=== PATIENT | female | born 1935 | race Caucasian/White ===

== ENCOUNTER 2019-06-25 06:11 | Day surgery (SDC) | payer MEDICARE, OTHER ==
[2019-06-24 11:50] LABS: International Normalized Ratio 1.43; Prothrombin Time Results 14.7 Sec (9.7-11.5)
[2019-06-24 12:01] LABS: Anion Gap 3 mmol/L (6-16); Blood Urea Nitrogen 10 mg/dL (8-24); Bun/Creatinine Ratio 17.2 (12.0-20.0); CO2, Blood 29 mmol/L (21-32); Calcium, Blood 8.6 mg/dL (8.5-10.1); Chloride, Blood 108 mmol/L (98-108); Creatinine, Blood 0.58 mg/dL (0.40-1.00); Glomerular Filtration Rate >60 (60-); Glucose, Blood 132 mg/dL (70-99); Potassium, Blood 3.7 mmol/L (3.5-5.5); Sodium, Blood 140 mmol/L (136-145)
[~2019-06-25] VITALS: Ht 157 cm; Wt 80.0 kg
[~2019-06-25 06:11] MED LIST: ECHINACEA350 MG PO; FERSU300 PO; LETR2.5 PO; LISI5 PO; LOVENOX; Milk Thistle175 M1 PO; PHENY100ER PO; VITAMIN B122500 MCG PO; WARF3 PO; WARF5 PO; [UNRECOGNIZED DRUG - OTHER] PO; [UNRECOGNIZED DRUG - REMARK] PO
--- NOTE | 2019-06-25 07:40 | NUR ---
"DAY SURGERY RN | TO OR VSS. A/O. Both doctors have seen patient. Denies further questions with family at bedside. Rx given to family to fill while patient in surgery. Patient denies need to void prior to surgery. Taken to OR."
--- NOTE | 2019-06-25 07:42 | NUR ---
"DAY SURGERY RN | Report to German GAITAN."
--- NOTE | 2019-06-25 13:05 | NUR ---
Patient up to Ambulate independently. Gait steady. STANDBY ASSIST WITH STANDING AND TRANSFER. Discharge instructions reviewed with patient. Patient verbalizes understanding. Copy given to patient to take home. Patient States Post-Procedure ride home has been arranged. Discharged via wheelchair to private car for ride home. IS, ADDITIONAL BINDER, 4X4 GAUZE, PADS, SPEC CUP, DAYANNA RECORD SENT WITH PT/DAUGHTER
--- NOTE | 2019-06-25 14:15 | NUR ---
06/25/19 1415 Mary Ugalde CHART AUDITS, VERIFICATIONS.
[2019-06-26 09:23] LABS: BASOPHILS ABSOLUTE AUTO 0.06 K/mm3 (0.00-0.23); BASOPHILS PERCENT AUTO 1 % (0-2); EOSINOPHILS ABSOLUTE AUTO 0.23 K/mm3 (0.00-0.68); EOSINOPHILS PERCENT AUTO 3 % (0-6); Hematocrit 44.7 % (33.0-51.0); Hemoglobin 14.8 g/dL (11.5-16.0); IMMATURE GRAN ABSOLUTE AUTO 0.02 K/mm3 (0.00-0.10); IMMATURE GRAN PERCENT AUTO 0 % (0-1); LYMPHOCYTES ABSOLUTE AUTO 1.25 K/mm3 (0.84-5.20); LYMPHOCYTES PERCENT AUTO 19 % (21-46); MONOCYTES ABSOLUTE AUTO 0.82 K/mm3 (0.16-1.47); MONOCYTES PERCENT AUTO 12 % (4-13); Mean Corpuscular HGB 32.7 pg (26.0-34.0); Mean Corpuscular HGB Conc 33.1 g/dL (31.5-36.5); Mean Corpuscular Volume 99 fL (80-100); Mean Platelet Volume 11.9 fL (9.1-12.4); NEUTROPHILS ABSOLUTE AUTO 4.37 K/mm3 (1.96-9.15); NEUTROPHILS PERCENT AUTO 65 % (41-73); Platelet Count 161 K/mm3 (150-400); RDW Coefficient Variation 12.4 % (11.7-14.2); RDW Standard Deviation 44.5 fL (35.1-46.3); Red Blood Cell Count 4.53 M/mm3 (3.80-5.20); White Blood Cell Count 6.75 K/mm3 (4.00-11.30)
== END 2019-06-25 23:18 | disposition home or self-care (01) ==
LOC: ORSCMMR 06:11 → ORD 07:30 → ORSCMMR 23:18
PROVIDERS: Surgery
PROC: 0HTU0ZZ Resection of Left Breast, Open Approach (ICD-10-PCS; principal; 2019-06-25 07:30)
DX: C50.812 Malignant neoplasm of overlapping sites of left female breast (principal); Z17.0 Estrogen receptor positive status [ER+]; C77.3 Secondary and unspecified malignant neoplasm of axilla and upper limb lymph nodes; I48.0 Paroxysmal atrial fibrillation; Z79.01 Long term (current) use of anticoagulants; E66.9 Obesity, unspecified; Z68.32 Body mass index [BMI] 32.0-32.9, adult
CPT/HCPCS: 36415; 80048; 85025; 85610; 85730; 88309; A9270-GY; J0690; J1100; J1885; J2370; J2405; J2704; J3010; J7120

== ENCOUNTER 2019-07-07 18:14 | Emergency (ER) | payer MEDICARE, OTHER ==
[~2019-07-07] VITALS: Ht 160 cm; Wt 77.1 kg
[2019-07-07] MEDS ORDERED: LORCET 5-325 M1 EACH PO (18:41)
[2019-07-07 19:30] LABS: BASOPHILS ABSOLUTE AUTO 0.03 K/mm3 (0.00-0.23); BASOPHILS PERCENT AUTO 0 % (0-2); EOSINOPHILS ABSOLUTE AUTO 0.07 K/mm3 (0.00-0.68); EOSINOPHILS PERCENT AUTO 1 % (0-6); Hematocrit 43.2 % (33.0-51.0); Hemoglobin 14.3 g/dL (11.5-16.0); IMMATURE GRAN ABSOLUTE AUTO 0.05 K/mm3 (0.00-0.10); IMMATURE GRAN PERCENT AUTO 0 % (0-1); LYMPHOCYTES ABSOLUTE AUTO 0.92 K/mm3 (0.84-5.20); LYMPHOCYTES PERCENT AUTO 7 % (21-46); MONOCYTES ABSOLUTE AUTO 1.02 K/mm3 (0.16-1.47); MONOCYTES PERCENT AUTO 8 % (4-13); Mean Corpuscular HGB 33.3 pg (26.0-34.0); Mean Corpuscular HGB Conc 33.1 g/dL (31.5-36.5); Mean Corpuscular Volume 101 fL (80-100); Mean Platelet Volume 10.3 fL (9.1-12.4); NEUTROPHILS ABSOLUTE AUTO 10.63 K/mm3 (1.96-9.15); NEUTROPHILS PERCENT AUTO 84 % (41-73); Platelet Count 213 K/mm3 (150-400); RDW Coefficient Variation 13.4 % (11.7-14.2); RDW Standard Deviation 49.7 fL (35.1-46.3); White Blood Cell Count 12.72 K/mm3 (4.00-11.30)
[2019-07-07 19:52] LABS: Alanine Aminotransfer (ALT/SGP 27 U/L (12-78); Albumin, Blood 2.7 g/dL (3.4-5.0); Albumin/Globulin Ratio 0.6 (0.8-1.8); Alk Phos 99 U/L (50-136); Anion Gap 5 mmol/L (6-16); Aspartate Aminotrans (AST/SGOT 57 U/L (12-37); Bilirubin, Total 0.6 mg/dL (0.1-1.0); Blood Urea Nitrogen 9 mg/dL (8-24); Bun/Creatinine Ratio 14.5 (12.0-20.0); CO2, Blood 24 mmol/L (21-32); Calcium, Blood 8.6 mg/dL (8.5-10.1); Chloride, Blood 107 mmol/L (98-108); Creatinine, Blood 0.62 mg/dL (0.40-1.00); Globulin, Blood 4.4 g/dL (2.2-4.0); Glomerular Filtration Rate >60 (60-); Glucose, Blood 112 mg/dL (70-99); Potassium, Blood 4.3 mmol/L (3.5-5.5); Sodium, Blood 136 mmol/L (136-145); Total Protein, Blood 7.1 g/dL (6.4-8.2)
[2019-07-07 19:53] LABS: BASOPHILS ABSOLUTE AUTO 0.04 K/mm3 (0.00-0.23); BASOPHILS PERCENT AUTO 0 % (0-2); EOSINOPHILS ABSOLUTE AUTO 0.06 K/mm3 (0.00-0.68); EOSINOPHILS PERCENT AUTO 1 % (0-6); Hematocrit 42.3 % (33.0-51.0); Hemoglobin 14.2 g/dL (11.5-16.0); IMMATURE GRAN ABSOLUTE AUTO 0.03 K/mm3 (0.00-0.10); IMMATURE GRAN PERCENT AUTO 0 % (0-1); LYMPHOCYTES ABSOLUTE AUTO 0.84 K/mm3 (0.84-5.20); LYMPHOCYTES PERCENT AUTO 7 % (21-46); MONOCYTES ABSOLUTE AUTO 1.04 K/mm3 (0.16-1.47); MONOCYTES PERCENT AUTO 8 % (4-13); Mean Corpuscular HGB 32.9 pg (26.0-34.0); Mean Corpuscular HGB Conc 33.6 g/dL (31.5-36.5); Mean Platelet Volume 9.8 fL (9.1-12.4); NEUTROPHILS ABSOLUTE AUTO 10.47 K/mm3 (1.96-9.15); NEUTROPHILS PERCENT AUTO 84 % (41-73); Platelet Count 195 K/mm3 (150-400); RDW Coefficient Variation 13.3 % (11.7-14.2); RDW Standard Deviation 47.8 fL (35.1-46.3); Red Blood Cell Count 4.32 M/mm3 (3.80-5.20); White Blood Cell Count 12.48 K/mm3 (4.00-11.30)
[2019-07-07 19:59] LABS: International Normalized Ratio 3.19; Prothrombin Time Results 30.4 Sec (9.7-11.5)
[2019-07-07 20:00] LABS: Mean Corpuscular Volume 98 fL (80-100)
[2019-07-07 20:16] LABS: Alanine Aminotransfer (ALT/SGP 26 U/L (12-78); Albumin, Blood 2.7 g/dL (3.4-5.0); Albumin/Globulin Ratio 0.6 (0.8-1.8); Alk Phos 102 U/L (50-136); Anion Gap 2 mmol/L (6-16); Aspartate Aminotrans (AST/SGOT 44 U/L (12-37); Bilirubin, Total 0.5 mg/dL (0.1-1.0); Blood Urea Nitrogen 8 mg/dL (8-24); Bun/Creatinine Ratio 11.7 (12.0-20.0); CO2, Blood 28 mmol/L (21-32); Calcium, Blood 8.5 mg/dL (8.5-10.1); Chloride, Blood 107 mmol/L (98-108); Creatinine, Blood 0.69 mg/dL (0.40-1.00); Globulin, Blood 4.4 g/dL (2.2-4.0); Glomerular Filtration Rate >60 (60-); Glucose, Blood 109 mg/dL (70-99); Potassium, Blood 3.9 mmol/L (3.5-5.5); Sodium, Blood 137 mmol/L (136-145); Total Protein, Blood 7.1 g/dL (6.4-8.2)
[2019-07-07 20:48] LABS: Source, Urine Catheter
[2019-07-07 21:00] LABS: Bilirubin, Urine Neg (Neg); Blood, Urine 3+ (Neg); Glucose Qualitative, Urine Neg (Neg); Ketones, Urine Neg (Neg); Leukocyte Esterase, Urine 3+ (Neg); Nitrite, Urine Neg (Neg); Protein, Urine Neg (Neg); Specific Gravity, Urine 1.015 (1.003-1.022); Urobilinogen, Urine NORM (Normal); pH, Urine 6.5 (5.0-8.0)
[2019-07-07 21:07] LABS: Appearance, Urine Hazy (Clear); Color, Urine Yellow (P-Yellow)
[2019-07-07 21:09] LABS: Bacteria Few /hpf; Squamous Epithelial Cells Rare /hpf (Few); White Blood Cells, Urine 25-50 /hpf (0-5)
[2019-07-07 21:10] LABS: Transitional Epithelial Cells Few /hpf (0-Rare)
[2019-07-07 21:25] LABS: Influenza A Negative (NEGATIVE); Influenza B Negative (NEGATIVE)
[2019-07-07] MEDS ORDERED: Keflex500 MG PO (21:42)
== END 2019-07-07 23:00 | disposition left against medical advice (07) ==
LOC: ER 18:14
PROVIDERS: Emergency Medicine; Physician Assistant
DX: A41.9 Sepsis, unspecified organism (principal); N39.0 Urinary tract infection, site not specified; I48.91 Unspecified atrial fibrillation; D72.829 Elevated white blood cell count, unspecified; Z90.12 Acquired absence of left breast and nipple; Z85.3 Personal history of malignant neoplasm of breast; Z79.899 Other long term (current) drug therapy; Z79.01 Long term (current) use of anticoagulants
CPT/HCPCS: 71046; 80053; 81001; 83605; 85025; 85610; 85730; 87040; 87086; 87804; 93005; 93010; 96361; 96365; 99284-25; J0696; J7030

== ENCOUNTER → 2019-07-08 | Outpatient (CLI) | payer MEDICARE, OTHER ==
[~2019-07-08] MED LIST changes: +Keflex500 MG PO; +LORCET 5-325 M1 EACH PO
[2019-07-08 15:43] LABS: BASOPHILS ABSOLUTE AUTO 0.05 K/mm3 (0.00-0.23); BASOPHILS PERCENT AUTO 0 % (0-2); EOSINOPHILS ABSOLUTE AUTO 0.05 K/mm3 (0.00-0.68); EOSINOPHILS PERCENT AUTO 0 % (0-6); Hematocrit 39.6 % (33.0-51.0); Hemoglobin 13.3 g/dL (11.5-16.0); IMMATURE GRAN ABSOLUTE AUTO 0.05 K/mm3 (0.00-0.10); IMMATURE GRAN PERCENT AUTO 0 % (0-1); LYMPHOCYTES ABSOLUTE AUTO 1.38 K/mm3 (0.84-5.20); LYMPHOCYTES PERCENT AUTO 9 % (21-46); MONOCYTES ABSOLUTE AUTO 1.74 K/mm3 (0.16-1.47); MONOCYTES PERCENT AUTO 11 % (4-13); Mean Corpuscular HGB 33.4 pg (26.0-34.0); Mean Corpuscular HGB Conc 33.6 g/dL (31.5-36.5); Mean Corpuscular Volume 100 fL (80-100); Mean Platelet Volume 10.5 fL (9.1-12.4); NEUTROPHILS ABSOLUTE AUTO 12.64 K/mm3 (1.96-9.15); NEUTROPHILS PERCENT AUTO 80 % (41-73); Platelet Count 194 K/mm3 (150-400); RDW Coefficient Variation 13.4 % (11.7-14.2); RDW Standard Deviation 49.5 fL (35.1-46.3); Red Blood Cell Count 3.98 M/mm3 (3.80-5.20); White Blood Cell Count 15.91 K/mm3 (4.00-11.30)
[2019-07-08 16:29] LABS: Anion Gap 8 mmol/L (6-16); Blood Urea Nitrogen 9 mg/dL (8-24); Bun/Creatinine Ratio 12.4 (12.0-20.0); CO2, Blood 23 mmol/L (21-32); Chloride, Blood 108 mmol/L (98-108); Creatinine, Blood 0.73 mg/dL (0.40-1.00); Glomerular Filtration Rate >60 (60-); Glucose, Blood 118 mg/dL (70-99); Potassium, Blood 3.6 mmol/L (3.5-5.5); Sodium, Blood 139 mmol/L (136-145)
== END | disposition home or self-care (01) ==
LOC: LAB 13:59 → LAB SHORT 13:59
PROVIDERS: Hospitalist
DX: N39.0 Urinary tract infection, site not specified (principal)
CPT/HCPCS: 80048; 85025

== ENCOUNTER 2019-09-24 21:23 | Emergency (ER) | payer MEDICARE, OTHER ==
[~2019-09-24] VITALS: Ht 157.5 cm; Wt 77.1 kg
[2019-09-25] MEDS ORDERED: Ultram50 MG PO (00:44)
== END 2019-09-25 01:28 | disposition home or self-care (01) ==
LOC: ER 21:23
DX: M25.562 Pain in left knee (principal); I48.91 Unspecified atrial fibrillation; M79.605 Pain in left leg; Z79.899 Other long term (current) drug therapy
CPT/HCPCS: 73562-LT; 93971; 99284-25

== ENCOUNTER → 2019-10-01 | Outpatient (CLI) | payer MEDICARE, OTHER ==
[~2019-10-01] MED LIST changes: +Ultram50 MG PO
[2019-10-01 13:05] LABS: Body Fluid Crystals NEG (NEGATIVE)
[2019-10-01 13:12] LABS: BODY FLUID RBC 0.518 M/mm3 (0-0); RBC Count, Synovial Fluid 518000 /mm3 (0-0); WBC Count, Synovial Fluid 5716 /mm3 (0-180)
[2019-10-01 13:22] LABS: Color, Synovial Fluid Red (None-P Yel)
[2019-10-01 13:23] LABS: Appearance, Synovial Fluid Bloody (Clear)
[2019-10-01 13:29] LABS: Eos, Synovial Fluid 2 % (0-2); Lymphs, Synovial Fluid 18 % (0-15); Monocytes/Macrophages, Synovia 29 % (0-65); Neutrophils, Synovial Fluid 51 % (0-24)
== END | disposition home or self-care (01) ==
LOC: LAB 12:26 → LAB SHORT 12:26
PROVIDERS: Orthopaedic Surgery
DX: M25.462 Effusion, left knee (principal)
CPT/HCPCS: 87070; 87075; 87205; 89051; 89060

== ENCOUNTER 2019-11-30 06:04 | Day surgery (SDC) | payer MEDICARE, OTHER ==
[~2019-11-30] VITALS: Ht 157.5 cm; Wt 81.0 kg
[~2019-11-30 06:04] MED LIST changes: +POTA10T PO; +TORS10 PO
--- NOTE | 2019-11-30 06:20 | NUR ---
PRE-OP: PER DR RICE, NO PRE- PROCEDURE EKG NEEDED. LABS DRAWN THIS AM. AWAITING RESULTS.
[2019-11-30 06:33] LABS: BASOPHILS ABSOLUTE AUTO 0.07 K/mm3 (0.00-0.23); BASOPHILS PERCENT AUTO 1 % (0-2); EOSINOPHILS ABSOLUTE AUTO 0.34 K/mm3 (0.00-0.68); EOSINOPHILS PERCENT AUTO 5 % (0-6); Hematocrit 48.4 % (33.0-51.0); Hemoglobin 16.4 g/dL (11.5-16.0); IMMATURE GRAN ABSOLUTE AUTO 0.01 K/mm3 (0.00-0.10); IMMATURE GRAN PERCENT AUTO 0 % (0-1); LYMPHOCYTES ABSOLUTE AUTO 1.76 K/mm3 (0.84-5.20); LYMPHOCYTES PERCENT AUTO 24 % (21-46); MONOCYTES ABSOLUTE AUTO 1.08 K/mm3 (0.16-1.47); MONOCYTES PERCENT AUTO 15 % (4-13); Mean Corpuscular HGB 33.5 pg (26.0-34.0); Mean Corpuscular HGB Conc 33.9 g/dL (31.5-36.5); Mean Corpuscular Volume 99 fL (80-100); NEUTROPHILS ABSOLUTE AUTO 4.12 K/mm3 (1.96-9.15); NEUTROPHILS PERCENT AUTO 56 % (41-73); Platelet Count 184 K/mm3 (150-400); RDW Coefficient Variation 13.2 % (11.7-14.2); RDW Standard Deviation 48.3 fL (35.1-46.3); Red Blood Cell Count 4.89 M/mm3 (3.80-5.20); White Blood Cell Count 7.38 K/mm3 (4.00-11.30)
[2019-11-30 06:48] LABS: Anion Gap 5 mmol/L (6-16); Blood Urea Nitrogen 8 mg/dL (8-24); Bun/Creatinine Ratio 11.8 (12.0-20.0); CO2, Blood 34 mmol/L (21-32); Calcium, Blood 8.8 mg/dL (8.5-10.1); Chloride, Blood 102 mmol/L (98-108); Creatinine, Blood 0.68 mg/dL (0.40-1.00); Glomerular Filtration Rate >60 (60-); Glucose, Blood 94 mg/dL (70-99); Potassium, Blood 3.1 mmol/L (3.5-5.5); Sodium, Blood 141 mmol/L (136-145)
[2019-11-30 06:49] LABS: International Normalized Ratio 1.26; Prothrombin Time Results 13.3 Sec (9.7-11.5)
--- NOTE | 2019-11-30 11:00 | NUR ---
10CC AIR REMOVED FROM R WRIST TR BAND. -BLEEDING OR SWELLING.
--- NOTE | 2019-11-30 12:00 | NUR ---
PT AMB TO BATHROOM /C SBA. TOLERATED WELL. -BLEEDING OR SWELLING R WRIST AND R GROIN.
--- NOTE | 2019-11-30 12:17 | NUR ---
R WRIST TR BAND REMOVED. PUNCTURE AREA CLEANED WITH NS AND RED CLOTH DRSG PLACED. R WRIST SPLINT REAPPLIED. PT AND DAUGHTER VERBALIZED UNDERSTANDING OR WRITTEN AND VERBAL D/C INST. IV REMOVED. PT TAKEN OUT OF THE HRT CENTER VIA W/C.
== END 2019-11-30 12:30 | disposition home or self-care (01) ==
LOC: MHTC 06:04
PROVIDERS: Internal Medicine Cardiovascular Disease
PROC: B201YZZ Plain Radiography of Multiple Coronary Arteries using Other Contrast (ICD-10-PCS; principal; 2019-11-30)
PROC: 4A023N7 Measurement of Cardiac Sampling and Pressure, Left Heart, Percutaneous Approach (ICD-10-PCS; principal; 2019-11-30)
DX: Z01.810 Encounter for preprocedural cardiovascular examination (principal); I35.0 Nonrheumatic aortic (valve) stenosis; I70.8 Atherosclerosis of other arteries; G40.909 Epilepsy, unspecified, not intractable, without status epilepticus; E66.3 Overweight; Z68.31 Body mass index [BMI] 31.0-31.9, adult; Z79.899 Other long term (current) drug therapy
CPT/HCPCS: 80048; 85025; 85610; 93454; 99152; 99153; A9270; C1769; C1894; J1644; J2250; J3010; J7030; Q9967

== ENCOUNTER → 2020-03-29 | Outpatient (CLI) | payer MEDICARE, OTHER ==
[2020-03-29 18:25] LABS: International Normalized Ratio 2.92; Prothrombin Time Results 29.4 Sec (9.7-11.5)
== END | disposition home or self-care (01) ==
LOC: LAB 14:17 → LAB SHORT 14:17
PROVIDERS: Hospitalist
DX: I48.91 Unspecified atrial fibrillation (principal)
CPT/HCPCS: 85610

== ENCOUNTER 2020-08-03 17:42 | Observation (INO) | payer MEDICARE, OTHER ==
[~2020-08-03] VITALS: Ht 157.5 cm; Wt 70.3 kg
[~2020-08-03 17:42] MED LIST changes: -LETR2.5 PO; -POTA10T PO; -TORS10 PO; -WARF3 PO
[2020-08-03 19:00] LABS: Alanine Aminotransfer (ALT/SGP 23 U/L (12-78); Albumin, Blood 2.9 g/dL (3.4-5.0); Albumin/Globulin Ratio 0.7 (0.8-1.8); Alk Phos 132 U/L (50-136); Anion Gap 8 mmol/L (6-16); Aspartate Aminotrans (AST/SGOT 35 U/L (12-37); Bilirubin, Total 1.2 mg/dL (0.1-1.0); Blood Urea Nitrogen 15 mg/dL (8-24); Bun/Creatinine Ratio 16.5 (12.0-20.0); CO2, Blood 30 mmol/L (21-32); Chloride, Blood 101 mmol/L (98-108); Creatinine, Blood 0.91 mg/dL (0.40-1.00); Globulin, Blood 4.4 g/dL (2.2-4.0); Glomerular Filtration Rate >60 (60-); Glucose, Blood 131 mg/dL (70-99); Potassium, Blood 3.4 mmol/L (3.5-5.5); Sodium, Blood 139 mmol/L (136-145); Total Protein, Blood 7.3 g/dL (6.4-8.2)
[2020-08-03 19:15] LABS: BASOPHILS ABSOLUTE AUTO 0.05 K/mm3 (0.00-0.23); BASOPHILS PERCENT AUTO 1 % (0-2); EOSINOPHILS ABSOLUTE AUTO 0.13 K/mm3 (0.00-0.68); EOSINOPHILS PERCENT AUTO 2 % (0-6); Hematocrit 38.9 % (33.0-51.0); Hemoglobin 13.3 g/dL (11.5-16.0); IMMATURE GRAN ABSOLUTE AUTO 0.02 K/mm3 (0.00-0.10); IMMATURE GRAN PERCENT AUTO 0 % (0-1); LYMPHOCYTES ABSOLUTE AUTO 1.62 K/mm3 (0.84-5.20); LYMPHOCYTES PERCENT AUTO 18 % (21-46); MONOCYTES ABSOLUTE AUTO 0.94 K/mm3 (0.16-1.47); MONOCYTES PERCENT AUTO 11 % (4-13); Mean Corpuscular HGB 33.7 pg (26.0-34.0); Mean Corpuscular HGB Conc 34.2 g/dL (31.5-36.5); Mean Corpuscular Volume 99 fL (80-100); Mean Platelet Volume 10.2 fL (9.1-12.4); NEUTROPHILS ABSOLUTE AUTO 6.07 K/mm3 (1.96-9.15); NEUTROPHILS PERCENT AUTO 69 % (41-73); Platelet Count 150 K/mm3 (150-400); RDW Coefficient Variation 12.6 % (11.7-14.2); Red Blood Cell Count 3.95 M/mm3 (3.80-5.20); White Blood Cell Count 8.83 K/mm3 (4.00-11.30)
[2020-08-03 19:22] LABS: International Normalized Ratio 2.99; Prothrombin Time Results 30.1 Sec (9.7-11.5)
[2020-08-03] MEDS ORDERED: WARF3 PO (19:24)
[2020-08-03] MEDS ORDERED: PLAVIX75 MG PO (19:24)
[2020-08-03] MEDS ORDERED: POTCHL20ER PO (19:25)
[2020-08-03] MEDS ORDERED: TORSE20 PO (19:26)
[2020-08-03] MEDS ORDERED: PHENYTOIN SODI100 MG PO ×2 (19:27)
[2020-08-03] MEDS ORDERED: LETR2.5 PO (19:27)
[2020-08-03] MEDS ORDERED: Lasix20 MG PO (20:53)
[2020-08-03] MEDS ORDERED: DOXY100 PO (20:53)
--- NOTE | 2020-08-04 05:20 | NUR ---
ICTHING FROM [facility] RESOLVED WITH IV BENEDRYL. 2ND [facility] INFUSED WITHOUT ADVERS REACTIONS. STILL LEAKING BLOOD OUT RECTUM, SOAK ATTENDS WITH PADS X2. SIDE.PATIENT APPEARS TO BE RESTING QUIETLY, BED IN LOW POSITION, CALL LIGHT BY I
[2020-08-04 05:43] LABS: Hematocrit 30.9 % (33.0-51.0); Hemoglobin 10.7 g/dL (11.5-16.0)
[2020-08-04 06:00] LABS: International Normalized Ratio 1.69
[2020-08-04 06:29] LABS: Prothrombin Time Results 17.6 Sec (9.7-11.5)
--- NOTE | 2020-08-04 08:39 | NUR ---
PT LAYING IN BED SLEEPING, WAKES EASILY, BUT STATES SHE'S TIRED, LUNGS ARE CLEAR DIM IN BASES, RESP EVEN AND UNLABORED, NO COUGH NOTED, IS ON R/A, HRR, TELE IN PLACE RUNNING PACED RYHTHM, MURMUR NOTED, NO EDEMA NOTED, PPP+1, CAP REFILL <3SEC, VS STABLE, AFEBRILE, IV SITE IS CLEAR AND PATENT, BTX4, ABD FLAT SOFT NONTENDER, VOIDS WITHOUT DIFF, SKIN C/W/D, MAEW, SBA TO BATHROOM, RICHY, CALL LIGHT IN REACH, WILL KEEP NPO FOR PENDING SCOPE.
[2020-08-04 12:49] LABS: Hematocrit 34.1 % (33.0-51.0); Hemoglobin 11.4 g/dL (11.5-16.0)
--- NOTE | 2020-08-04 15:27 | NUR ---
PT INTO SDS VIA GURNEY FROM PCU. History, Chart, Medications and Allergies reviewed before start of procedure. Lungs clear T/O to Auscultation. Patient confirms NPO status and agrees with scheduled surgery.
--- NOTE | 2020-08-04 15:53 | NUR ---
08/04/20 1553 ROBERT PHIPPS History, Chart, Medications and Allergies reviewed before start of procedure. 3-LEAD EKG REVIEWED WITH PHYSICIAN PRIOR TO START OF PROCEDURE. O2 VIA N/C INTACT THROUGHOUT SEDATION/PROCEDURE. MONITOR INTACT WITH CONTINUOUS PULSE OXIMETRY AND INTERMITTENT BP. PATIENT DETERMINED TO BE ASA APPROPRIATE FOR PROPOFOL SEDATION PRIOR TO START OF PROCEDURE BY DR. HAWTHORNE.
[2020-08-04 18:00] LABS: Hematocrit 35.9 % (33.0-51.0); Hemoglobin 12.1 g/dL (11.5-16.0)
--- NOTE | 2020-08-04 18:41 | NUR ---
pt had a egd today, returned in good condition, daughter in attendence. surgical consult was called into Dr. Sam office. pt tolerated a full liquid dinner. v.s. stable, no further needs. call light in reach.
--- NOTE | 2020-08-05 06:29 | NUR ---
shift summary pt rested through night no c/o pain ao paced 70 room air no bloody drainage/bm's voided x3 vss call light within reach. bed in lowest position. will continue to monitor.
--- NOTE | 2020-08-05 08:00 | NUR ---
PT SLEEPY THIS AM, WANTS TO REST, A/OX3, PLEASANT AND COOPERATIVE WITH CARE, FOLLOWS COMMANDS WELL, DENIES PAIN, LUNGS CLEAR, DIM, RA, HRR, TELE IN PLACE, RUNNING PACED, NO EDEMA NOTED, PPP+1, CAP REFILL <3SEC, VS STABLE, AFEBRILE, IV SITE IS CLEAR AND PATENT, BTX4, ABD FLAT SOFT NONTENDER, VOIDS VIA BR, PULLUPS IN PLACE, SKIN C/W/D, MAEW, RICHY, CALL LIGHT IN REACH.
[2020-08-05] MEDS ORDERED: Anusol-HC 2.5%30 GM PR (16:54)
[2020-08-05] MEDS ORDERED: ASPI81CH PO (16:55)
--- NOTE | 2020-08-05 17:08 | NUR ---
pt has been discharged to home, will see surgery as out pt for her needs. went over medication changes, and follow up appts. iv removed intact, left via wheelchair with cleaner assistant and her daughter who is taking her home. pt has all her belongings.
== END 2020-08-05 17:12 | disposition home or self-care (01) ==
LOC: ER 17:42 → PCU 17:43
PROVIDERS: Emergency Medicine; Student in an Organized Health Care Education/Training Program; ADMIT Family Medicine
PROC: 0DB68ZZ Excision of Stomach, Via Natural or Artificial Opening Endoscopic (ICD-10-PCS; principal; 2020-08-04 15:30)
PROC: 0DJD8ZZ Inspection of Lower Intestinal Tract, Via Natural or Artificial Opening Endoscopic (ICD-10-PCS; principal; 2020-08-04 15:30)
DX: K29.50 Unspecified chronic gastritis without bleeding (principal); B96.81 Helicobacter pylori [H. pylori] as the cause of diseases classified elsewhere; K64.4 Residual hemorrhoidal skin tags; K64.8 Other hemorrhoids; Z20.828 Contact with and (suspected) exposure to other viral communicable diseases; K74.60 Unspecified cirrhosis of liver; I25.10 Atherosclerotic heart disease of native coronary artery without angina pectoris; Z79.02 Long term (current) use of antithrombotics/antiplatelets; Z79.82 Long term (current) use of aspirin; Z79.899 Other long term (current) drug therapy; I50.32 Chronic diastolic (congestive) heart failure; E87.6 Hypokalemia; Z86.73 Personal history of transient ischemic attack (TIA), and cerebral infarction without residual deficits; I48.19 Other persistent atrial fibrillation; G40.909 Epilepsy, unspecified, not intractable, without status epilepticus; K57.30 Diverticulosis of large intestine without perforation or abscess without bleeding; Z79.01 Long term (current) use of anticoagulants
CPT/HCPCS: 36415; 36430; 74177; 80053; 85014; 85018; 85025; 85610; 85730; 86850; 86900; 86901; 88305; 88342; 93005; 93010; 96374; 99285-25; A9270; G0378; J1200; J2704; J7030; J7120; P9059; Q9967; U0003

== ENCOUNTER 2020-08-20 20:59 | Inpatient (IN) | payer MEDICARE, OTHER ==
[~2020-08-20] VITALS: Ht 157.5 cm; Wt 67.4 kg
[~2020-08-20 20:59] MED LIST changes: +ASPI81CH PO; +Anusol-HC 2.5%30 GM PR; +DOXY100 PO; +LETR2.5 PO; +Lasix20 MG PO; +PHENYTOIN SODI100 MG PO; +PLAVIX75 MG PO; +POTCHL20ER PO; +TORSE20 PO; +WARF3 PO
[2020-08-20] MEDS ORDERED: VIBRAMYCIN100 MG PO (21:13)
[2020-08-20] MEDS ORDERED: Flagyl500 MG PO (21:13)
[2020-08-20] MEDS ORDERED: K-Dur 20 meq T20 MEQ PO (21:14)
[2020-08-20] MEDS ORDERED: PANTOPRAZOLE SO40 M2 PO (21:14)
[2020-08-20] MEDS ORDERED: TORSE20 PO (21:15)
[2020-08-20] MEDS ORDERED: PHENY100ER PO (21:17)
[2020-08-20] MEDS ORDERED: B-12500 MC1 (21:17)
[2020-08-20] MEDS ORDERED: CENTRUM SILVER1 EAC2 (21:17)
[2020-08-20] MEDS ORDERED: CRANBERRY450 M1 (21:17)
[2020-08-20] MEDS ORDERED: FEROSUL325 M1 PO (21:18)
[2020-08-20 21:34] LABS: BASOPHILS ABSOLUTE AUTO 0.08 K/mm3 (0.00-0.23); BASOPHILS PERCENT AUTO 1 % (0-2); EOSINOPHILS ABSOLUTE AUTO 0.21 K/mm3 (0.00-0.68); EOSINOPHILS PERCENT AUTO 3 % (0-6); Hematocrit 41.8 % (33.0-51.0); Hemoglobin 14.1 g/dL (11.5-16.0); IMMATURE GRAN ABSOLUTE AUTO 0.03 K/mm3 (0.00-0.10); IMMATURE GRAN PERCENT AUTO 0 % (0-1); LYMPHOCYTES ABSOLUTE AUTO 2.23 K/mm3 (0.84-5.20); LYMPHOCYTES PERCENT AUTO 28 % (21-46); MONOCYTES ABSOLUTE AUTO 1.21 K/mm3 (0.16-1.47); MONOCYTES PERCENT AUTO 15 % (4-13); Mean Corpuscular HGB 33.6 pg (26.0-34.0); Mean Corpuscular HGB Conc 33.7 g/dL (31.5-36.5); Mean Corpuscular Volume 100 fL (80-100); Mean Platelet Volume 10.6 fL (9.1-12.4); NEUTROPHILS PERCENT AUTO 52 % (41-73); Platelet Count 199 K/mm3 (150-400); RDW Coefficient Variation 12.6 % (11.7-14.2); RDW Standard Deviation 46.5 fL (35.1-46.3); White Blood Cell Count 7.86 K/mm3 (4.00-11.30)
[2020-08-20 21:47] LABS: Alanine Aminotransfer (ALT/SGP 26 U/L (12-78); Albumin, Blood 2.7 g/dL (3.4-5.0); Albumin/Globulin Ratio 0.6 (0.8-1.8); Alk Phos 147 U/L (50-136); Anion Gap 7 mmol/L (6-16); Aspartate Aminotrans (AST/SGOT 47 U/L (12-37); Blood Urea Nitrogen 21 mg/dL (8-24); Bun/Creatinine Ratio 22.3 (12.0-20.0); CO2, Blood 31 mmol/L (21-32); Calcium, Blood 8.2 mg/dL (8.5-10.1); Chloride, Blood 96 mmol/L (98-108); Creatinine, Blood 0.94 mg/dL (0.40-1.00); Ethanol (Alcohol), Blood, Med <3 mg/dL; Globulin, Blood 4.6 g/dL (2.2-4.0); Glomerular Filtration Rate 60 (60-); Glucose, Blood 97 mg/dL (70-99); Potassium, Blood 3.7 mmol/L (3.5-5.5); Sodium, Blood 134 mmol/L (136-145); Total Protein, Blood 7.3 g/dL (6.4-8.2); Troponin I <0.015 ng/mL (0.000-0.040)
[2020-08-20 23:21] LABS: Source, Urine Clean Catch
[2020-08-20 23:24] LABS: Bilirubin, Urine Neg (Neg); Blood, Urine Neg (Neg); Glucose Qualitative, Urine Neg (Neg); Ketones, Urine Neg (Neg); Leukocyte Esterase, Urine 1+ (Neg); Nitrite, Urine Neg (Neg); Protein, Urine Neg (Neg); Specific Gravity, Urine 1.005 (1.003-1.022); Urobilinogen, Urine NORM (Normal)
[2020-08-20 23:26] LABS: Appearance, Urine Clear (Clear); Color, Urine Yellow (P-Yellow)
[2020-08-20 23:34] LABS: Bacteria Few /hpf; Red Blood Cells, Urine 0-2 /hpf (0-2); Squamous Epithelial Cells Not Seen /hpf (Few)
[2020-08-21 00:31] LABS: CPK Creatine Kinase 83 U/L (26-193)
--- NOTE | 2020-08-21 01:17 | NUR ---
0105 PT ADMITTED TO ROOM 358 PER CART FROM ER; REPORT RECEIVED FROM KANDY KENT, VIA ER; ALERT AND ORIENTED X 2; SPEECH SLIGHTLY GARBLED; PT DEMONSTRATED ABILITY TO SWALLOW WATER WITH GOOD GAG REFLEX NOTED.
--- NOTE | 2020-08-21 04:05 | NUR ---
SHIFT SUMMARY: 85 Y/O FEMALE RESTED COMFORTABLY ALL SHIFT; CIWA 8; ALERT AND ORIENTED X 2; EXPRESSIVE APHASIA NOTED; BED ALARM APPLIED, BED LOW POSITION WITH CALL LIGHT AT SIDE; PT VERY WEAK.
[2020-08-21 05:09] LABS: BASOPHILS ABSOLUTE AUTO 0.05 K/mm3 (0.00-0.23); BASOPHILS PERCENT AUTO 1 % (0-2); EOSINOPHILS PERCENT AUTO 3 % (0-6); Hematocrit 39.8 % (33.0-51.0); Hemoglobin 13.3 g/dL (11.5-16.0); IMMATURE GRAN ABSOLUTE AUTO 0.03 K/mm3 (0.00-0.10); IMMATURE GRAN PERCENT AUTO 0 % (0-1); LYMPHOCYTES ABSOLUTE AUTO 1.53 K/mm3 (0.84-5.20); LYMPHOCYTES PERCENT AUTO 21 % (21-46); MONOCYTES ABSOLUTE AUTO 1.07 K/mm3 (0.16-1.47); MONOCYTES PERCENT AUTO 15 % (4-13); Mean Corpuscular HGB 33.4 pg (26.0-34.0); Mean Corpuscular HGB Conc 33.4 g/dL (31.5-36.5); Mean Corpuscular Volume 100 fL (80-100); Mean Platelet Volume 10.3 fL (9.1-12.4); NEUTROPHILS ABSOLUTE AUTO 4.36 K/mm3 (1.96-9.15); NEUTROPHILS PERCENT AUTO 60 % (41-73); Platelet Count 164 K/mm3 (150-400); RDW Coefficient Variation 12.6 % (11.7-14.2); Red Blood Cell Count 3.98 M/mm3 (3.80-5.20); White Blood Cell Count 7.24 K/mm3 (4.00-11.30)
[2020-08-21 05:37] LABS: Anion Gap 6 mmol/L (6-16); Blood Urea Nitrogen 16 mg/dL (8-24); Bun/Creatinine Ratio 20.9 (12.0-20.0); CO2, Blood 33 mmol/L (21-32); Calcium, Blood 8.3 mg/dL (8.5-10.1); Chloride, Blood 100 mmol/L (98-108); Creatinine, Blood 0.76 mg/dL (0.40-1.00); Glomerular Filtration Rate >60 (60-); Glucose, Blood 92 mg/dL (70-99); Potassium, Blood 2.9 mmol/L (3.5-5.5); Sodium, Blood 139 mmol/L (136-145)
--- NOTE | 2020-08-21 11:24 | NUR ---
Echocardiogram completed.
[2020-08-21] MEDS ORDERED: CIDAFLEX TABLE1 EAC1 PO (12:02)
[2020-08-21 13:14] LABS: Albumin, Blood 2.6 g/dL (3.4-5.0); Anion Gap 5 mmol/L (6-16); Blood Urea Nitrogen 16 mg/dL (8-24); Bun/Creatinine Ratio 20.2 (12.0-20.0); CHOL/HDL RATIO 2.9; CO2, Blood 32 mmol/L (21-32); Calcium, Blood 8.6 mg/dL (8.5-10.1); Chloride, Blood 101 mmol/L (98-108); Cholesterol 118 mg/dL (50-200); Creatinine, Blood 0.79 mg/dL (0.40-1.00); Glomerular Filtration Rate >60 (60-); Glucose, Blood 119 mg/dL (70-99); HDL Cholesterol 41 mg/dL (>39); LDL/HDL RATIO 1.4; Low Density Lipoprotein Chol 59 mg/dL (0-110); Phosphorus, Blood 2.7 mg/dL (2.5-4.9); Potassium, Blood 3.7 mmol/L (3.5-5.5); Sodium, Blood 138 mmol/L (136-145); Triglycerides 90 mg/dL (30-160); Very Low Density Lipoprot Chol 18 mg/dL (6-32)
--- NOTE | 2020-08-21 16:32 | NUR ---
Spoke with Bedside RN Madeline and KANDY Jackson. Discussed case and concerns. Pt resting in bed upon arrival. Pt denies pain and dyspnea at this time. Pt reports mild anxiety due to the possibility of having to sell her house. Engaged in therapeutic listening as Pt reports concerns of a lean being placed on her home. Pt reports her has dementia with physical disabilities and lives in a memory care unit. Pt reports a lean will be placed on home to recoup the cost of care. Continued therapeutic listening and validated concerns. 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 Pt reports she wants a second opinion because she isn't convinced she has cancer. She reports thinking her daughter has made an appointment with Dr Jarquin. Engaged in therapeutic discussion regarding AD/POLST. Educated on life sustaining measures including risk factors and implications. Pt states "I thought I completed one of those the last time I was here". Instructed Pt no records in EMR showing POLST or AD. Left both AD and POLST with Pt to discuss with her daughter. Pt gives this RN permission to call teofilo Keene. Pt reports no other concerns at this time. Attempted to contact teofilo Keene with number listed on face sheet. Jero answers and provides this RN with another number to contact. Attempted alternate number and left message with request for a return phone call. Teofilo Keene [phone], . Palliative Care will remain available.
--- NOTE | 2020-08-21 18:05 | NUR ---
PT ALERT AND ORIENTED X4, AMBULATES WITH MAX ASSIST, TAKES PILLS WHOLE IN SAUCE, ATE ALL MEALS, HAD VISIT [facility] DAUGHTER AND IS AWAITING TEST RESULTS. 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 STAFF WILL CONTINUE TO MONITOR FOR CHANGES.
--- NOTE | 2020-08-22 04:20 | NUR ---
STAFF DEVELOPMENT EDUCATOR SUMMARY A/0X3. SPEECH CONTINUES TO BE SLURRED AT TIMES. HAND MUSIC MANAGER EQUAL BILATERALLY. DENIES N/T. NO FACIAL DROOP NOTED. PT REPORTS DIZZINESS UPON STANDING. BEDPAN USED D/T UNSTEADY GAIT. DENIES PAIN AT THIS TIME. APPEARED TO SLEEP T/O THE NIGHT. BED IN LOWEST POSITION WITH CALL LIGHT IN REACH. WILL CONTINUE TO MONITOR AND REPORT TO ONCOMING RN.
[2020-08-22 05:01] LABS: Hematocrit 39.1 % (33.0-51.0); Hemoglobin 12.9 g/dL (11.5-16.0)
[2020-08-22 05:28] LABS: Albumin, Blood 2.2 g/dL (3.4-5.0); Anion Gap 6 mmol/L (6-16); Blood Urea Nitrogen 11 mg/dL (8-24); Bun/Creatinine Ratio 15.8 (12.0-20.0); CO2, Blood 31 mmol/L (21-32); Calcium, Blood 8.9 mg/dL (8.5-10.1); Chloride, Blood 105 mmol/L (98-108); Dilantin (Phenytoin), Total 23.4 ug/mL (10.0-20.0); Glomerular Filtration Rate >60 (60-); Glucose, Blood 83 mg/dL (70-99); Phosphorus, Blood 3.3 mg/dL (2.5-4.9); Potassium, Blood 3.3 mmol/L (3.5-5.5); Sodium, Blood 142 mmol/L (136-145)
--- NOTE | 2020-08-22 15:52 | NUR ---
SHIFT SUMMARY PT IS A/O X 4 BUT DOES HAVE MOMENTS OF CONFUSION. HER HEARING AIDES ARE BROKEN SO SHE IS HAVING DIFFICULTY HEARING. HER DAUGHTER HAS BEEN AT THE BEDSIDE MOST OF THE DAY. THE PLAN IS TO CONTINUE TO MONITOR HER LABS AND WORK WITH THERAPY WHICH SHE HAS DONE TODAY. PT IS ABLE TO MAKE HER NEEDS KNOWN AND CALLS FOR HELP WHEN NEEDED.
--- NOTE | 2020-08-23 04:23 | NUR ---
SHIFT SUMMARY AOX3. FORGETFUL & IMPULSIVE @TIMES. CHER-AE HEIGHTS. FOLLOWS DIRECTIONS. HAS MILD TREMORS BUE. EQUAL CORROSION CONTROL TECHNICIAN. REPORTS OCCASIONAL DIZZINESS & WEAKNESS. DENIES DYSPNEA, PAIN OR N/V. VSS. TELE PACED @70. THIS AM PT HAD XL HARD FORMED BROWN BM THE SIZE OF A SOFTBALL, AFTER PASSING STOOL PT THEN HAD ROUGHLY 500ML LRG LIQUID BROWN BM. REPORTS FEELING VERY WEAK & FATIGUED. CALL LIGHT IN REACH & BED ALARM ON FOR SAFETY.
[2020-08-23 05:07] LABS: Dilantin (Phenytoin), Total 22.5 ug/mL (10.0-20.0)
[2020-08-23 05:08] LABS: Albumin, Blood 2.4 g/dL (3.4-5.0); Anion Gap 8 mmol/L (6-16); Blood Urea Nitrogen 12 mg/dL (8-24); Bun/Creatinine Ratio 14.7 (12.0-20.0); CO2, Blood 27 mmol/L (21-32); Calcium, Blood 8.8 mg/dL (8.5-10.1); Chloride, Blood 104 mmol/L (98-108); Creatinine, Blood 0.82 mg/dL (0.40-1.00); Glomerular Filtration Rate >60 (60-); Glucose, Blood 155 mg/dL (70-99); Phosphorus, Blood 2.9 mg/dL (2.5-4.9); Potassium, Blood 3.3 mmol/L (3.5-5.5); Sodium, Blood 139 mmol/L (136-145)
--- NOTE | 2020-08-23 14:15 | NUR ---
PT IS A/O X 4 BUT IS FORGETFUL AT TIMES. SHE IS JENA AND HER HEARING AIDES ARE NOT WORKING AT THIS TIME. THE PT HAS BEEN IMPULSIVE AT TIMES TODAY AND THE BED ALARM HAS BEEN ON FOR SAFETY. HER STRENGTH IS IMPROVING BUT SHE IS STILL UNSTEADY ON HER FEED AND NEEDS ASSIST TO THE BSC. SHE CONTINUES TO WORK WITH THERAPY. HER DAUGHTER VISITED AROUND LUNCH TIME. PLAN IS FOR HER TO DC TO A SNF AND THE POUCH MAKER HAS BEEN WORKING ON THAT. REPORT WILL BE GIVEN TO ONCOMING RN.
--- NOTE | 2020-08-23 18:31 | NUR ---
SHIFT SUMMARY RECEIVED PT FROM KANDY BASURTO. PT A/O X3; AND CAN BE IMPULSIVE AT TIMES. BED ALARM ON AND A 1 ASSIST TO THE BSC. PT IS VERY [place] O[place]ES AND HER HEARING AIDES ARE BROKEN. THE PLAN IS FOR HER TO DISCHARGE TO A SNF TOMORROW. [place]; MADDIE.
[2020-08-24 04:38] LABS: Albumin, Blood 2.2 g/dL (3.4-5.0); Anion Gap 5 mmol/L (6-16); Blood Urea Nitrogen 9 mg/dL (8-24); Bun/Creatinine Ratio 11.7 (12.0-20.0); CO2, Blood 28 mmol/L (21-32); Calcium, Blood 8.2 mg/dL (8.5-10.1); Chloride, Blood 107 mmol/L (98-108); Creatinine, Blood 0.77 mg/dL (0.40-1.00); Dilantin (Phenytoin), Total 16.1 ug/mL (10.0-20.0); Glomerular Filtration Rate >60 (60-); Glucose, Blood 80 mg/dL (70-99); Phosphorus, Blood 3.5 mg/dL (2.5-4.9); Potassium, Blood 3.6 mmol/L (3.5-5.5); Sodium, Blood 140 mmol/L (136-145)
--- NOTE | 2020-08-24 05:57 | NUR ---
SHIFT SUMMARY PT IS AN 85Y/O FEMALE, ADMITTED FOR CVA. SHE IS A&O X 3, [place]. NO RESIDUAL NEURO DEFICITS NOTED ON ASSESSMENT. NO COMPLAINTS OF ACUTE PAIN, NAUSEA OR SOB. VITAL SIGNS STABLE. TELE SHOWED A PACED RHYTHM AT 70 BPM. NO ACUTE CHANGES IN PT CONDITION NOTED DURING THE NIGHT. WILL CONTINUE TO MONITOR AND TREAT PER EMAR UNTIL HAND OFF TO DAY SHIFT RN.
--- NOTE | 2020-08-24 12:11 | NUR ---
report received from [facility] nurse, a+o, 02 coming set at 4L, after evaluating pt lowered it to 3, has continued to perform well no s/sx of sob, will continue to evaluate and reduce as appropriate, assisted to reposition, walked to bathroom w sba, pt stated legs remained painful, warm but not shiny, dry skin, will continue to monitor and treat as appropriate
--- NOTE | 2020-08-24 19:26 | NUR ---
a+o, bsr shared with noc nurse, reviewed need for accurate temps, call light in reach, bed in low position, saline locked, sitting up doing crosswords
--- NOTE | 2020-08-24 22:38 | NUR ---
2000 PT RESTING COMFORTABLY IN BED; CHEERFUL.
--- NOTE | 2020-08-25 02:58 | NUR ---
SHIFT SUMMARY: 85 Y/O FEMALE RESTED COMFORTABLY ALL SHIFT; DENIES PAIN OR NAUSEA; TELEMETRY REFLECTS PACED RHYTHM PER GEOVANY--FLIGHT CREW TIME CLERK; POSSIBLE DISCHARGE TO [facility] TODAY TO BE NEAR DAUGHTER; NO NEURO DEFICITS NOTED; AFEBRILE; BED ALARM APPLIED FOR SAFETY, BED LOW POSITION WITH CALL LIGHT AT SIDE.
--- NOTE | 2020-08-25 11:32 | NUR ---
Spiritual care visit conducted. Patient is sitting on a chair and alert. Patient's daughter Octaviano is present. They explain about patient's medical issues and the plan for her to be transferred to a rehab. facility in [place]. They also share about patient's residing in a SNF in [place] because of his dementia and how that complicates matters. Octaviano tells me that they will be moving patient down to [place] permanently after she gains her strength and mobility back. I listen empathically, normalize patient's experience and provide a calming presence and prayer. Patient and Octaviano voice their appreciation for the visit and state that the prayer was meaningful to them.
--- NOTE | 2020-08-25 16:26 | NUR ---
discharged, picked up by transport, accompanied from building by daughter, documented stay, faxed medication list to rg, also called with report, reviewded mediation, dc instructions as well as expectations
== END 2020-08-25 15:26 | DRG 92 ==
LOC: ER 20:59 → MEDS 21:00
PROVIDERS: Family Medicine; Physician Assistant; ADMIT Internal Medicine
DX: G25.1 Drug-induced tremor (principal); R47.01 Aphasia; I48.21 Permanent atrial fibrillation; C79.51 Secondary malignant neoplasm of bone; Z20.828 Contact with and (suspected) exposure to other viral communicable diseases; R27.0 Ataxia, unspecified; T42.0X5A Adverse effect of hydantoin derivatives, initial encounter; R47.81 Slurred speech; R47.1 Dysarthria and anarthria; E87.6 Hypokalemia; I95.1 Orthostatic hypotension; C50.919 Malignant neoplasm of unspecified site of unspecified female breast; R56.9 Unspecified convulsions; K21.9 Gastro-esophageal reflux disease without esophagitis; I51.89 Other ill-defined heart diseases; Z86.73 Personal history of transient ischemic attack (TIA), and cerebral infarction without residual deficits; Z95.2 Presence of prosthetic heart valve; Z95.0 Presence of cardiac pacemaker; Z79.899 Other long term (current) drug therapy; Z79.02 Long term (current) use of antithrombotics/antiplatelets; Z79.82 Long term (current) use of aspirin; Z79.811 Long term (current) use of aromatase inhibitors
CPT/HCPCS: 36415; 70450; 70496; 72100; 80048; 80053; 80061; 80069; 80185; 81001; 82550; 84484; 85014; 85018; 85025; 87086; 92610; 93005; 93010; 93306; 93880; 97110; 97116; 97161; 97165; 97530; 97535; 99285-25; A9270; A9270-GY; G0480; J1650; J7030; Q9967; U0004

== ENCOUNTER 2020-12-09 16:45 | Emergency (ER) | payer MEDICARE, OTHER ==
[~2020-12-09] VITALS: Ht 160 cm; Wt 70.3 kg
[~2020-12-09 16:45] MED LIST changes: +B-12500 MC1; +CENTRUM SILVER1 EAC2; +CIDAFLEX TABLE1 EAC1 PO; +CRANBERRY450 M1; +FEROSUL325 M1 PO; +Flagyl500 MG PO; +K-Dur 20 meq T20 MEQ PO; +PANTOPRAZOLE SO40 M2 PO; +VIBRAMYCIN100 MG PO
[2020-12-09 17:22] LABS: BASOPHILS ABSOLUTE AUTO 0.05 K/mm3 (0.00-0.23); BASOPHILS PERCENT AUTO 1 % (0-2); EOSINOPHILS PERCENT AUTO 3 % (0-6); Hematocrit 42.6 % (33.0-51.0); Hemoglobin 14.9 g/dL (11.5-16.0); IMMATURE GRAN ABSOLUTE AUTO 0.01 K/mm3 (0.00-0.10); IMMATURE GRAN PERCENT AUTO 0 % (0-1); LYMPHOCYTES ABSOLUTE AUTO 1.43 K/mm3 (0.84-5.20); LYMPHOCYTES PERCENT AUTO 20 % (21-46); MONOCYTES ABSOLUTE AUTO 0.87 K/mm3 (0.16-1.47); MONOCYTES PERCENT AUTO 12 % (4-13); Mean Corpuscular HGB 32.5 pg (26.0-34.0); Mean Corpuscular Volume 93 fL (80-100); NEUTROPHILS ABSOLUTE AUTO 4.62 K/mm3 (1.96-9.15); NEUTROPHILS PERCENT AUTO 64 % (41-73); Platelet Count 195 K/mm3 (150-400); RDW Coefficient Variation 12.8 % (11.7-14.2); RDW Standard Deviation 43.8 fL (35.1-46.3); Red Blood Cell Count 4.58 M/mm3 (3.80-5.20); White Blood Cell Count 7.18 K/mm3 (4.00-11.30)
[2020-12-09 17:38] LABS: Alanine Aminotransfer (ALT/SGP 23 U/L (12-78); Albumin, Blood 3.2 g/dL (3.4-5.0); Albumin/Globulin Ratio 0.7 (0.8-1.8); Alk Phos 148 U/L (50-136); Anion Gap 5 mmol/L (6-16); Aspartate Aminotrans (AST/SGOT 33 U/L (12-37); Bilirubin, Total 0.8 mg/dL (0.1-1.0); Blood Urea Nitrogen 14 mg/dL (8-24); Bun/Creatinine Ratio 17.9 (12.0-20.0); CO2, Blood 31 mmol/L (21-32); Calcium, Blood 9.1 mg/dL (8.5-10.1); Chloride, Blood 100 mmol/L (98-108); Creatinine, Blood 0.78 mg/dL (0.40-1.00); Globulin, Blood 4.8 g/dL (2.2-4.0); Glomerular Filtration Rate >60 (60-); Glucose, Blood 105 mg/dL (70-99); Potassium, Blood 3.8 mmol/L (3.5-5.5); Sodium, Blood 136 mmol/L (136-145)
[2020-12-09 17:40] LABS: Dilantin (Phenytoin), Total 9.6 ug/mL (10.0-20.0)
== END 2020-12-09 18:59 ==
LOC: ER 16:45
PROVIDERS: Physician Assistant
DX: R20.0 Anesthesia of skin (principal); K21.9 Gastro-esophageal reflux disease without esophagitis; I48.91 Unspecified atrial fibrillation; Z79.02 Long term (current) use of antithrombotics/antiplatelets; Z79.899 Other long term (current) drug therapy; Z79.82 Long term (current) use of aspirin; Z95.0 Presence of cardiac pacemaker
CPT/HCPCS: 36415; 80053; 80185; 85025; 99283

== ENCOUNTER → 2021-03-15 | Outpatient (CLI) | payer MEDICARE, OTHER ==
[2021-03-15 18:27] LABS: Anion Gap 7 mmol/L (6-16); Blood Urea Nitrogen 15 mg/dL (8-24); Bun/Creatinine Ratio 16.9 (12.0-20.0); CO2, Blood 28 mmol/L (21-32); Calcium, Blood 9.1 mg/dL (8.5-10.1); Chloride, Blood 103 mmol/L (98-108); Creatinine, Blood 0.89 mg/dL (0.40-1.00); Glomerular Filtration Rate >60 (60-); Glucose, Blood 101 mg/dL (70-99); Sodium, Blood 138 mmol/L (136-145)
== END | disposition home or self-care (01) ==
LOC: LAB 14:50 → LAB SHORT 14:50
PROVIDERS: Hospitalist
DX: I50.32 Chronic diastolic (congestive) heart failure (principal)
CPT/HCPCS: 80048